=== PATIENT | female | born 2005 | race Two or more races ===

== ENCOUNTER 2024-10-18 02:46 | Emergency (ER) | payer OTHER ==
[~2024-10-18] VITALS: Ht 160 cm; Wt 68.0 kg
[2024-10-18] MEDS ORDERED: ONDANSETRON HCL 2 MG/ML VIAL IV STA (03:36)
[2024-10-18] MEDS ORDERED: FAMOtidine 10 MG/ML (4ML VIAL) IV PUSH STA (03:36)
[2024-10-18] MEDS ORDERED: 0.9 % SODIUM CHLORIDE 1,000 ML IV STA (03:37)
[2024-10-18] MEDS ORDERED: HYOSCYAMINE SULFATE 0.125 MG TAB.SUBL SL ONE (04:15)
[2024-10-18 04:16] LABS: HEMATOCRIT 38.6 % (34.1-44.9); HEMOGLOBIN 12.5 g/dL (11.2-15.7); RED BLOOD COUNT 4.46 M/uL (3.93-5.22)
[2024-10-18] MEDS ORDERED: THIAMINE HCL 100 MG/ML 2 ML VIAL IV STA (04:16)
[2024-10-18 04:17] LABS: BASO % 0.4 % (0.1-1.2); EOS # 0.05 (0.04-0.54); EOS % 0.6 % (0.7-7.0); LYMPH % 15.6 % (19.3-53.1); MONO # 0.47 (0.24-0.82); MONO % 5.2 % (4.7-12.5); NEUT # 6.99 (1.56-6.13); NEUT % 78.1 % (34.0-71.1); PLATELET COUNT 304 K/uL (163-369)
[2024-10-18 04:28] LABS: CALCIUM 9.1 mg/dL (8.5-10.1); CREATININE SERUM 0.6 mg/dL (0.55-1.02); GFR 127.45; POTASSIUM 4.53 mEq/L (3.5-5.1)
[2024-10-18] MEDS ORDERED: hydrOXYzine PAMOATE 50 MG CAPSULE PO STA (06:59)
== END 2024-10-18 08:05 | disposition home or self-care (01) ==
LOC: EMR PED 02:46
DX: R12 Heartburn (principal); K29.20 Alcoholic gastritis without bleeding
CPT/HCPCS: 36415; 96365; 96366; 99282; J2405; J3490; J7030